=== PATIENT | male | born 1980 | race Caucasian/White ===

== ENCOUNTER 2020-12-23 09:31 | Emergency (ER) | payer BC ==
[~2020-12-23] VITALS: Ht 175.3 cm; Wt 108.9 kg
[~2020-12-23 09:31] MED LIST: AMLODIPINE BESYL5 MG PO; CIPRO500 MG PO; FLAGYL500 MG PO; PEPCID20 MG PO; PROAIR HFA INH8.5 GM INH; SYMBICORT INH
[2020-12-23] MEDS ORDERED: METFORMIN HCL1000 MG PO (10:13)
[2020-12-23] MEDS ORDERED: CLEOCIN HCL300 MG PO (10:14)
[2020-12-23] MEDS ORDERED: DOXYCYCLINE HY100 MG PO (10:15)
[2020-12-23] MEDS ORDERED: CLINDAMYCIN PHOS 300MG/2ML VIAL ONE (10:22)
[2020-12-23] MEDS ORDERED: NYSTATIN15 GM TOP (10:24)
[2020-12-23] MEDS ORDERED: CLINDAMYCIN PHOS 600 MG/ 4 ML VIAL IM ONE (10:30)
== END 2020-12-23 10:50 | disposition home or self-care (01) ==
LOC: FSED 09:46
DX: L03.115 Cellulitis of right lower limb (principal); E11.65 Type 2 diabetes mellitus with hyperglycemia; I10 Essential (primary) hypertension; E66.9 Obesity, unspecified
CPT/HCPCS: 36415; 82948; 96372; 99283

== ENCOUNTER 2021-09-02 08:15 | Emergency (ER) | payer BC ==
[~2021-09-02] VITALS: Ht 175.3 cm; Wt 108.9 kg
[~2021-09-02 08:15] MED LIST changes: +CLEOCIN HCL300 MG PO; +DOXYCYCLINE HY100 MG PO; +METFORMIN HCL1000 MG PO; +NYSTATIN15 GM TOP
[2021-09-02] MEDS ORDERED: KETOROLAC TROMETHAMINE 30 MG/ML VIAL IV STA (08:28)
[2021-09-02] MEDS ORDERED: SODIUM CHLORIDE 0.9% 1000ML 1,000 ML IV STA (08:28)
[2021-09-02] MEDS ORDERED: Morphine 2mg Syringe 2 MG/ML SYR IV STA (08:28)
[2021-09-02] MEDS ORDERED: ONDANSETRON HCL INJ 2MG/ML 2ML 2 MG/ML VIAL IV STA (08:28)
[2021-09-02] MEDS ORDERED: DIATRIZOATE MEGL/DIATRIZOA SOD 30 ML BTL PO ONE (08:46)
[2021-09-02 09:01] LABS: BASOPHILS # (AUTO) 0.1 (0.0-0.1); BASOPHILS % 0.7 % (0.0-1.0); EOSINOPHILS # (AUTO) 0.3 (0.0-0.4); EOSINOPHILS % 2.4 % (0.0-6.0); HEMATOCRIT 47.5 % (38.2-49.6); HEMOGLOBIN 16.3 g/dL (14.0-18.0); LYMPHOCYTES # (AUTO) 1.9 (1.0-3.2); LYMPHOCYTES % 17.3 % (18.0-39.1); MEAN CORPUSCULAR HEMOGLOBIN 29.7 pg (28-32); MEAN CORPUSCULAR HGB CONC 34.3 g/dL (31-35); MEAN CORPUSCULAR VOLUME 86.7 fL (81-99); MONOCYTES # (AUTO) 0.9 (0.2-0.8); MONOCYTES % 8.7 % (4.4-11.3); NEUTROPHILS # (AUTO) 7.6 (2.1-6.9); NEUTROPHILS % 70.5 % (38.7-80.0); PLATELET COUNT 209 x10e3/uL (140-360); RED BLOOD COUNT 5.48 x10e6/uL (4.3-5.7); RED CELL DISTRIBUTION WIDTH 13.2 % (11.7-14.4)
[2021-09-02 10:29] LABS: CLARITY,URINE CLEAR (CLEAR); COLOR,URINE YELLOW (YELLOW); KETONES,URINE NEGATIVE (NEGATIVE); LEUKOCYTE ESTERASE ,URINE NEGATIVE (NEGATIVE); NITRITE,URINE NEGATIVE (NEGATIVE); PROTEIN,URINE DIPSTICK NEGATIVE (NEGATIVE); URINE UROBILINOGEN 0.2 mg/dL (0.2 - 1)
[2021-09-02 10:33] LABS: ALBUMIN 4.1 g/dL (3.5-5.0); ALBUMIN/GLOBULIN RATIO 1.1 (0.8-2.0); CALCIUM 10.2 mg/dL (8.4-10.2); CREATININE, SERUM 0.74 mg/dL (0.72-1.25)
[2021-09-02 10:40] LABS: BACTERIA,URINE FEW /HPF; EPITHELIAL CELLS,URINE FEW /LPF; RBC,URINE 0-5 /HPF (0-5); WBC,URINE (MAN) 0-5 /HPF (0-5)
[2021-09-02] MEDS ORDERED: IOPAMIDOL 370 MG/ML 100 ML INFUS..BTL INJ ONE (10:49)
== END 2021-09-02 14:07 | disposition home or self-care (01) ==
LOC: ER 08:29
DX: R10.32 Left lower quadrant pain (principal); K57.32 Diverticulitis of large intestine without perforation or abscess without bleeding; E11.65 Type 2 diabetes mellitus with hyperglycemia; K76.0 Fatty (change of) liver, not elsewhere classified; K44.9 Diaphragmatic hernia without obstruction or gangrene; I10 Essential (primary) hypertension; E78.5 Hyperlipidemia, unspecified
CPT/HCPCS: 36415; 74177; 80053; 81001; 85025; 87040; 87086; 99284; J1885; J2270; J2405; J7030; Q9967

== ENCOUNTER 2022-02-27 07:23 | Emergency (ER) | payer BC, OTHER ==
[~2022-02-27] VITALS: Ht 175.3 cm; Wt 108.9 kg
[2022-02-27] MEDS ORDERED: BACTRIM DS TAB1 EACH PO (09:53)
[2022-02-27] MEDS ORDERED: CEPHALEXIN500 MG PO (09:53)
== END 2022-02-27 10:10 | disposition home or self-care (01) ==
LOC: ER 07:43
DX: L03.113 Cellulitis of right upper limb (principal); S60.221A Contusion of right hand, initial encounter; W22.8XXA Striking against or struck by other objects, initial encounter; Y92.89 Other specified places as the place of occurrence of the external cause; I10 Essential (primary) hypertension; E11.9 Type 2 diabetes mellitus without complications; E78.5 Hyperlipidemia, unspecified
CPT/HCPCS: 99284